=== PATIENT | female | born 1995 | race African-American/Black ===

== ENCOUNTER 2018-12-07 11:46 | Emergency (ER) | payer SELFPAY ==
[~2018-12-07] VITALS: Ht 149.9 cm; Wt 56.0 kg
[2018-12-07] MEDS ORDERED: SODIUM CHLORIDE 0.9% 1000ML 1,000 ML IV STA (11:58)
[2018-12-07] MEDS ORDERED: KETOROLAC TROMETHAMINE 30 MG/ML VIAL IV STA (12:07)
[2018-12-07] MEDS ORDERED: CEFTRIAXONE SOD 1 GM VIAL IV ONE (12:15)
[2018-12-07] MEDS ORDERED: CEFTRIAXONE SOD 1 GM/NS 50 ML 50 ML IV ONE (12:30)
[2018-12-07] MEDS ORDERED: ONDANSETRON HCL INJ 2MG/ML 2ML 2 MG/ML VIAL IV STA ×2 (12:31→12:38)
--- NOTE | 2018-12-07 12:32 | Diagnostic Imaging Report ---
EXAMINATION: PA and lateral views of the chest. COMPARISON: None CLINICAL HISTORY: Loss of consciousness after exercising DISCUSSION: Lines/tubes: None. Lungs: The lungs are well inflated and clear. There is no evidence of pneumonia or pulmonary edema. Pleura: There is no pleural effusion or pneumothorax. Heart and mediastinum: Cardiomediastinal silhouette is unremarkable. Pulmonary vasculature is normal. Bones and soft tissues: No acute bony abnormalities. Rightward curvature of the thoracic spine. IMPRESSION: No acute cardiopulmonary abnormalities. Signed by: Dr. Get Rodriguez M.D. on 12/07/2018 12:29 PM
--- NOTE | 2018-12-07 12:32 | Diagnostic Imaging Report ---
History: Syncope Comparison studies: None Technique: Axial images were obtained from the skull base to the vertex. Coronal and sagittal reconstructions obtained from the axial data. Dose modulation, iterative reconstruction, and/or weight based adjustment of the mA/kV was utilized to reduce the radiation dose to as low as reasonably achievable. Intravenous contrast: None Findings: Scalp/skull: No abnormalities. No fractures, blastic or lytic lesions. Extra-axial spaces: No masses. No fluid collections. Brain sulci: Appropriate for age. Ventricles: Normal in size and configuration. No hydrocephalus. Parenchyma: No abnormal densities. No masses, hemorrhage, acute or chronic cortical vascular insults. Sellar/suprasellar region: No abnormalities Craniocervical junction: Patent foramen magnum. No Chiari one malformation. IMPRESSION: No abnormalities. Signed by: Dr. Rivas Hong M.D. on 12/07/2018 12:28 PM
--- NOTE | 2018-12-07 12:59 | NUR ---
APPROX 200CC IVF LEFT STILL INFUSING. NO S/S INFILTRATION NOTED
== END 2018-12-07 13:16 | disposition home or self-care (01) ==
LOC: FSED 11:46
DX: R55 Syncope and collapse (principal); E86.1 Hypovolemia; E86.0 Dehydration; K52.9 Noninfective gastroenteritis and colitis, unspecified
CPT/HCPCS: 70450; 71046; 80053; 81003; 81025; 84484; 85025; 93005; 99284; J0696; J1885; J7030